=== PATIENT | male | born 1980 | race Caucasian/White ===

== ENCOUNTER 2025-07-21 08:29 | Emergency (ER) | payer BC ==
[2025-07-21] MEDS ORDERED: Ketorolac Tromethamine 30 MG (1 mL) VIAL ONE (09:24)
[2025-07-21] MEDS ORDERED: Dexamethasone 10 MG/ML VIAL ONE (09:24)
[2025-07-21 10:24] LABS: Bacteria/HPF None Seen HPF (None Seen); CAUTI Indications for Culture Pelvic or flank pain; Glucose, Urine (Dipstick) 300 mg/dL (Negative); Leukocyte Negative Leu/uL (Negative); Protein, Urine (Dipstick) Negative (Neg-Trace); RBC/HPF 0-3 HPF (0-3); Specific Gravity, Urine 1.028 (1.002-1.036); WBC/HPF 0-3 HPF (0-3); Yeast-Budding Rare HPF (None Seen)
[2025-07-21 10:41] LABS: Urine Culture Reflex No No
== END 2025-07-21 11:14 ==
LOC: ERS 08:29
DX: M54.50 Low back pain, unspecified (principal); I10 Essential (primary) hypertension; F17.210 Nicotine dependence, cigarettes, uncomplicated; X50.0XXA Overexertion from strenuous movement or load, initial encounter; Z79.899 Other long term (current) drug therapy
CPT/HCPCS: 72131; 81001; 96372; J1100; J1885